=== PATIENT | female | born 1995 ===

== ENCOUNTER 2016-12-11 17:20 | Emergency (ER) | payer OTHER, BC ==
[2016-12-11 17:30] VITALS: BP 125/74; PULSE 92; RESP 18; TEMP 98.4; O2SAT 100
[2016-12-11] MEDS ORDERED: Naproxen 500 MG TAB PO ONE ×2 (17:50→18:08)
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
--- NOTE | 2016-12-17 07:17 | CARD ---
APPROVED REPORT EKG Measurement Heart [id number] <Conclusion> Sinus tachycardia Otherwise normal ECG
== END 2016-12-11 18:51 | disposition home or self-care (01) ==
LOC: H.ER 17:20
DX: S20.219A Contusion of unspecified front wall of thorax, initial encounter (principal); V03.10XA Pedestrian on foot injured in collision with car, pick-up truck or van in traffic accident, initial encounter; Y92.410 Unspecified street and highway as the place of occurrence of the external cause; E03.9 Hypothyroidism, unspecified

== ENCOUNTER 2018-02-21 14:04 | Emergency (ER) | payer BC, OTHER ==
[2018-02-21] MEDS ORDERED: ceFAZolin 1 GM in Sodium Chloride 0.9% 100 ML IVPB ONE (14:44)
--- NOTE | 2018-02-21 15:09 | ED PDOC ---
HPI: Skin/Bite Injury Time Seen by Provider: 02/21/18 14:40 Chief Complaint (Nursing): Bite Chief Complaint (Provider): insect bite History Per: Patient History/Exam Limitations: no limitations Current Symptoms Are (Timing): Still Present Additional Complaint(s): 23-year-old female, presents to the emergency department with complaints of of right leg pain. Patient states she was in [facility] and returned yesterday. Three days ago, she [place] and noted bite flower to her right leg. The next day patient woke up and developed pain to the area, which has been worsening gradually, prompting visit. Patient is currently complaining of chills and some fatigue. She denies any numbness/weakness, nausea/vomiting, fever, shortness of breath or any other associated symptoms. No other complaints at this time. Past Medical History Reviewed: Historical Data, Nursing Documentation, Vital Signs Vital Signs: Last Vital Signs Temp 99.1 F 02/21/18 14:16 Pulse 115 H 02/21/18 14:16 Resp 20 02/21/18 14:16 BP 111/66 02/21/18 14:16 Pulse Ox 100 02/21/18 15:51 - Medical History PMH: Hypothyroidism - Family History Family History: States: No Known Family Hx - Home Medications Home Medications: Ambulatory Orders Medication Instructions Recorded Naproxen [Naprosyn Tab] 500 mg PO Q12 #20 tab 12/11/16 Cephalexin [Keflex] 500 mg PO QID #28 capsule 02/21/18 Sulfamethoxazole/Trimethoprim 2 each PO BID #28 tablet 02/21/18 [Bactrim Ds Tablet] - Allergies Allergies/Adverse Reactions: Allergies Allergy/AdvReac Type Severity Reaction Status Date / Time No Known Allergies Allergy Verified 02/21/18 14:14 Review of Systems Constitutional: Negative for: Fever, Chills Cardiovascular: Negative for: Chest Pain Respiratory: Negative for: Shortness of Breath Gastrointestinal: Negative for: Nausea, Vomiting Musculoskeletal: Positive for: Leg Pain Skin: Negative for: Rash Neurological: Negative for: Weakness, Numbness Physical Exam - Reviewed Nursing Documentation Reviewed: Yes Vital Signs Reviewed: Yes - Physical Exam Appears: Positive for: Non-toxic, No Acute Distress Skin: Positive for: Normal Color, Warm, Dry Eye Exam: Positive for: Normal appearance Neck: Positive for: Painless ROM Extremity: Positive for: Other (Right lateral ankle with 2.5cm region of ecchymosis and erythema involving ankle and foot, approximatey 8cm in diameter. ). Negative for: Deformity Neurologic/Psych: Positive for: Alert, Oriented - Laboratory Results Result Diagrams: 02/21/18 15:45 02/21/18 15:30 - ECG O2 Sat by Pulse Oximetry: 100 - Progress ED Course And Treament: VANCOMYCIN 1 GM IV X 1 DOSE ANCEF 1 GM IV X 1 DOSE Medical Decision Making Medical Decision Making: Impression Bug bite Plan: * VBG * Bloodwork * Vancomycin, Ancef * Blood Culture * Reassess and Disposition Progress Scribe Attestation: Documented by Franky Vincent, acting as a scribe for MAC Beckham. Provider Scribe Attestation: All medical record entries made by the Scribe were at my direction and personally dictated by me. I have reviewed the chart and agree that the record accurately reflects my personal performance of the history, physical exam, medical decision making, and the department course for this patient. I have also personally directed, reviewed, and agree with the discharge instructions and disposition. Disposition - Clinical Impression Clinical Impression: Cellulitis, Insect bite - Patient ED Disposition Is Patient to be Admitted: No - Disposition Disposition: Routine/Home Disposition Time: 18:59 Condition: FAIR Additional Instructions: RETURN IN 2 DAYS FOR RE-EVALUATION Prescriptions: Cephalexin [Keflex] 500 mg PO QID #28 capsule Sulfamethoxazole/Trimethoprim [Bactrim Ds Tablet] 2 each PO BID #28 tablet Instructions: Insect Bites and Stings (DC), Cellulitis (Skin Infection), Adult (DC) Forms: [employer] (Moz[place]ican), [facility] ED School/Work Excuse
[2018-02-21] MEDS ORDERED: Vancomycin 1 g Inj ONE (15:52)
[2018-02-21 16:00] LABS: VENOUS BLOOD GAS BASE EXCESS 1.2 mmol/L (0.0-2.0); VENOUS BLOOD GAS PCO2 44 mmHg (40-60); VENOUS BLOOD GAS PO2 25 mm/Hg (30-55); VENOUS BLOOD PH 7.39 (7.32-7.43)
[2018-02-21 16:04] LABS: BASO % 0.4 % (0.0-2.0); EOS # 0.1 K/uL (0.0-0.7); EOS % 0.7 % (0.0-4.0); HEMOGLOBIN 13.5 g/dL (12.0-16.0); LYMPH % 13.4 % (20.0-40.0); MEAN CELL VOLUME 90.3 fl (81.0-99.0); MEAN CORPUSCULAR HEMOGLOBIN 29.9 pg (27.0-31.0); MEAN CORPUSCULAR HGB CONC 33.1 g/dL (33.0-37.0); MEAN PLATELET VOLUME 8.6 fl (7.2-11.7); MONO # 0.5 K/uL (0.0-0.8); MONO % 6.8 % (0.0-10.0); NEUT # 5.8 K/uL (1.8-7.0); NEUT % 78.7 % (50.0-75.0); RBC 4.5 Mil/uL (3.80-5.20); RED CELL DISTRIBUTION WIDTH 15.3 % (11.5-14.5); WHITE BLOOD COUNT 7.4 K/uL (4.8-10.8)
[2018-02-21 16:09] LABS: BLOOD UREA NITROGEN 11 mg/dl (7-17); GFR AFRICAN-AMERICAN > 60; GFR NON-AFRICAN AMERICAN > 60
[2018-02-21 19:38] VITALS: BP 134/84; PULSE 98; RESP 18; TEMP 99.8; O2SAT 99
== END 2018-02-21 19:40 | disposition home or self-care (01) ==
LOC: H.ER 14:04
DX: L03.115 Cellulitis of right lower limb (principal); S80.861A Insect bite (nonvenomous), right lower leg, initial encounter; E03.9 Hypothyroidism, unspecified; W57.XXXA Bitten or stung by nonvenomous insect and other nonvenomous arthropods, initial encounter
CPT/HCPCS: 80048; 82803; 85025; 87040; 96374; 96375; 99282; J0690

== ENCOUNTER 2018-02-23 17:37 | Emergency (ER) | payer BC ==
[2018-02-23 17:43] VITALS: BP 117/77; PULSE 82; RESP 16; TEMP 97.9; O2SAT 99
[2018-02-23] MEDS ORDERED: Tmp-Smz 800 mg-160 mg DS Tab PO STA (17:55)
--- NOTE | 2018-02-23 17:58 | ED PDOC ---
HPI: Skin/Bite Injury Time Seen by Provider: 02/23/18 17:48 Chief Complaint (Nursing): Abnormal Skin Integrity Chief Complaint (Provider): Abnormal Skin Integrity History Per: Patient History/Exam Limitations: no limitations Onset/Duration Of Symptoms: Days (x3) Current Symptoms Are (Timing): Better Additional Complaint(s): 23 year old female arrives to ED for a wound check of a right ankle bite initially evaluated on 02/21/18. Patient was prescribed Keflex/Bactrim and reports decrease in redness and swelling. She denies any fever, chills or pain. Patient is requesting to get prescribed medications in ED as she accidentally left it at work today and is due for next dose. Past Medical History Reviewed: Historical Data, Nursing Documentation, Vital Signs Vital Signs: Last Vital Signs Temp 97.9 F 02/23/18 17:42 Pulse 82 02/23/18 17:42 Resp 16 02/23/18 17:42 BP 117/77 02/23/18 17:42 Pulse Ox 99 02/23/18 18:12 - Medical History PMH: Hypothyroidism - Surgical History Surgical History: No Surg Hx - Family History Family History: States: Unknown Family Hx - Home Medications Home Medications: Ambulatory Orders Medication Instructions Recorded Naproxen [Naprosyn Tab] 500 mg PO Q12 #20 tab 12/11/16 Cephalexin [Keflex] 500 mg PO QID #28 capsule 02/21/18 Sulfamethoxazole/Trimethoprim 2 each PO BID #28 tablet 02/21/18 [Bactrim Ds Tablet] - Allergies Allergies/Adverse Reactions: Allergies Allergy/AdvReac Type Severity Reaction Status Date / Time No Known Allergies Allergy Verified 02/21/18 14:14 Review of Systems ROS Statement: Except As Marked, All Systems Reviewed And Found Negative Constitutional: Negative for: Fever, Chills Musculoskeletal: Negative for: Foot Pain Physical Exam - Reviewed Nursing Documentation Reviewed: Yes Vital Signs Reviewed: Yes - Physical Exam Appears: Positive for: Well, Non-toxic, No Acute Distress Pulses-Dorsalis Pedis (R): 2+ Extremity: Positive for: Other (small ecchymotic area to right lateral distal malleolus with faint erythema (-) streaking) - ECG O2 Sat by Pulse Oximetry: 99 (RA) Pulse Ox Interpretation: Normal Medical Decision Making Medical Decision Making: Initial Impression: Wound check Initial Plan: * Bactrim DS 2 tabs PO * Keflex 500mg PO --------- Time: 1758 --Upon provider evaluation, patient is medically stable and requires no further treatment in the ED at this time. Patient will be discharged home. Counseling was provided and all questions were answered regarding diagnosis. There is agreement to discharge plan. Return if symptoms persist or worsen. Clinical Impression: Wound check Scribe Attestation: Documented by Savannah Lopez, acting as a scribe for Louie Curiel PA-C. Provider Scribe Attestation: All medical record entries made by the Scribe were at my direction and personally dictated by me. I have reviewed the chart and agree that the record accurately reflects my personal performance of the history, physical exam, medical decision making, and the department course for this patient. I have also personally directed, reviewed, and agree with the discharge instructions and disposition. Disposition - Clinical Impression Clinical Impression: Visit for wound check - Patient ED Disposition Is Patient to be Admitted: No Counseled Patient/Family Regarding: Diagnosis, Need For Followup - Disposition Referrals: [facility] [Outside] Disposition: Routine/Home Disposition Time: 17:58 Condition: STABLE Additional Instructions: CONTINUE ANTIBIOTICS PRESCRIBED STEPHEN SALINAS, thank you for letting us take care of you today. Your provider was Rohini Erickson MD and you were treated for WOUND CHECK. The emergency medical care you received today was directed at your acute symptoms. If you were prescribed any medication, please fill it and take as directed. It may take several days for your symptoms to resolve. Return to the Emergency Department if your symptoms worsen, do not improve, or if you have any other problems. Please contact your doctor or call one of the physicians/clinics you have been referred to that are listed on the Patient Visit Information form that is included in your discharge packet. Bring any paperwork you were given at discharge with you along with any medications you are taking to your follow up visit. Our treatment cannot replace ongoing medical care by a primary care provider outside of the emergency department. Thank you for allowing the [facility] team to be part of your care today. If you had an X-Ray or CT scan: A Radiologist will review the ED reading if any change in treatment is needed we will contact you. If you had a blood, urine, or wound culture: It will take several days for the results, if any change in treatment is needed we will contact you. If you had an STI test: It will take 48 hours for the results. Please call after 1 week if you have not heard back. Instructions: Wound Care (DC) Forms: [employer] (Tanzanian)
[2018-02-23] MEDS ORDERED: Tmp-Smz 800 mg-160 mg DS Tab ONE (18:00)
== END 2018-02-23 18:03 | disposition home or self-care (01) ==
LOC: H.ER 17:37
DX: Z48.00 Encounter for change or removal of nonsurgical wound dressing (principal)

== ENCOUNTER 2018-03-02 07:11 | Emergency (ER) | payer BC ==
[2018-03-02 07:23] VITALS: BMI 26.5
[2018-03-02] MEDS ORDERED: DiphenhydrAMINE 50 mg/ml Inj IV STA (08:06)
[2018-03-02] MEDS ORDERED: Sodium Chloride 0.9% 1,000 ML IV STA (08:06)
[2018-03-02] MEDS ORDERED: DiphenhydrAMINE 50 mg/ml Inj ONE (08:24)
[2018-03-02 09:33] LABS: BASO % 0.2 % (0.0-2.0); EOS # 0.2 K/uL (0.0-0.7); EOS % 6.6 % (0.0-4.0); HEMOGLOBIN 13.2 g/dL (12.0-16.0); LYMPH # 0.7 K/uL (1.0-4.3); LYMPH % 18.4 % (20.0-40.0); MEAN CELL VOLUME 88.2 fl (81.0-99.0); MEAN CORPUSCULAR HEMOGLOBIN 29.9 pg (27.0-31.0); MEAN CORPUSCULAR HGB CONC 33.9 g/dL (33.0-37.0); MEAN PLATELET VOLUME 7.7 fl (7.2-11.7); MONO # 0.2 K/uL (0.0-0.8); MONO % 6.3 % (0.0-10.0); NEUT # 2.6 K/uL (1.8-7.0); NEUT % 68.5 % (50.0-75.0); NRBC % 0.5 % (0.0-0.0); RBC 4.43 Mil/uL (3.80-5.20); RED CELL DISTRIBUTION WIDTH 14.6 % (11.5-14.5); WHITE BLOOD COUNT 3.8 K/uL (4.8-10.8)
[2018-03-02 09:35] LABS: SQUAMOUS EPITHIAL < 1 /hpf (0-5); URINE BACTERIA RARE (<OCC); URINE BILIRUBIN NEGATIVE (NEGATIVE); URINE BLOOD NEGATIVE (NEGATIVE); URINE CLARITY CLEAR (Clear); URINE COLOR YELLOW (YELLOW); URINE GLUCOSE (UA) NEG (Normal); URINE LEUKOCYTE ESTERASE NEG Leu/uL (Negative); URINE PROTEIN NEGATIVE (NEGATIVE); URINE UROBILINOGEN 0.2-1.0 mg/dL (0.2-1.0)
[2018-03-02 09:37] LABS: INR 1.1; PROTHROMBIN TIME 11.8 Seconds (9.8-13.1)
[2018-03-02 09:39] LABS: PARTIAL THROMBOPLASTIN TIME 37.5 Seconds (25.6-37.1)
[2018-03-02 09:45] LABS: ALB/GLOB RATIO 1.3 (1.0-2.1); ALBUMIN 4.2 g/dL (3.5-5.0); ALT/SGPT 28 U/L (9-52); AST/SGOT 33 U/L (14-36); BLOOD UREA NITROGEN 9 mg/dl (7-17); CALCIUM 8.8 mg/dL (8.4-10.2); GFR AFRICAN-AMERICAN > 60; GFR NON-AFRICAN AMERICAN > 60
[2018-03-02 13:44] VITALS: BP 108/59; RESP 18; TEMP 98.4; O2SAT 98
--- NOTE | 2018-03-02 13:56 | ED PDOC ---
HPI: General Adult Time Seen by Provider: 03/02/18 07:34 Chief Complaint (Nursing): Abnormal Skin Integrity Chief Complaint (Provider): RASH History Per: Patient, Family History/Exam Limitations: no limitations Current Symptoms Are (Timing): Still Present Severity: Severe Location: diffuse Quality: rash Additional Complaint(s): 23yo female presents with new onset rash started last night worse this morning. Rash diffuse from face to toes, it does involve palms and soles. No SOB or throat swelling. +facial swelling. States ?low grade fevers but no weakness, cough, oral pain/lesions, conjunctivitis or muscle/joint pains. Taking bactrim and keflex almost completed course after possible insect bite with cellulitis LLE obtained in [facility]. Seen ED 02/21 with a followup visit thereafter. States ankle pain and swelling has resolved, ambulating normally. Past Medical History Vital Signs: Last Vital Signs Temp 98.4 F 03/02/18 14:13 Pulse 104 H 03/02/18 14:13 Resp 18 03/02/18 14:13 BP 108/59 L 03/02/18 14:13 Pulse Ox 98 03/02/18 14:13 - Medical History PMH: Hypothyroidism - Family History Family History: States: Unknown Family Hx - Home Medications Home Medications: Ambulatory Orders Medication Instructions Recorded Naproxen [Naprosyn Tab] 500 mg PO Q12 #20 tab 12/11/16 Cephalexin [Keflex] 500 mg PO QID #28 capsule 02/21/18 Sulfamethoxazole/Trimethoprim 2 each PO BID #28 tablet 02/21/18 [Bactrim Ds Tablet] DiphenhydrAMINE [Benadryl] 25 mg PO Q4 PRN #12 cap 03/02/18 Prednisone 50 mg PO DAILY #4 tab 03/02/18 - Allergies Allergies/Adverse Reactions: Allergies Allergy/AdvReac Type Severity Reaction Status Date / Time No Known Allergies Allergy Verified 02/21/18 14:14 Physical Exam - Reviewed Nursing Documentation Reviewed: Yes Vital Signs Reviewed: Yes - Physical Exam Appears: Positive for: Non-toxic Head Exam: Positive for: ATRAUMATIC, NORMAL INSPECTION, NORMOCEPHALIC Skin: Positive for: Normal Color, Warm, Rash (diffuse erythematous macular papular eruption including face/ palms/soles) Eye Exam: Positive for: EOMI, Normal appearance, PERRL ENT: Positive for: Normal ENT Inspection, Pharynx Is (neg koplik spots), Pharyngeal Erythema. Negative for: Tonsillar Swelling Neck: Positive for: Normal, Painless ROM Cardiovascular/Chest: Positive for: Regular Rate, Rhythm Respiratory: Positive for: CNT, Normal Breath Sounds Pulses-Radial (L): 3+/4+ Pulses-Radial (R): 3+/4+ Gastrointestinal/Abdominal: Positive for: Soft. Negative for: Tenderness, Guarding Back: Positive for: Normal Inspection Extremity: Positive for: Normal ROM Neurologic/Psych: Positive for: Alert, Oriented, Gait (normal). Negative for: Motor/Sensory Deficits - Laboratory Results Result Diagrams: 03/02/18 09:24 03/02/18 09:24 - ECG O2 Sat by Pulse Oximetry: 98 Medical Decision Making Medical Decision Making: workup initiated for impressive rash diffuse, nontender, +palms and soles, afebrile otherwise well appearing labs and repeat blood cultures obtained +mild leukopenia Mild elev ESR Plt normal renal and liver function unremarkable UA unremarkable solumedrol and benadryl given w re-evaluations for improvement. No respiratory symptoms. Given foreign travel, now rash and prior ? cellulitis [facility] intens[facility], Dr Lee saw patient and recommended multiple tests including zika (PCR ok per ID), RSMF, RPR, measles, dengue, etc. Explained findings and need for followup ID in office next week. Explained avoid public spaces. Dr Lee does not believe measles, rather drug eruption but continue w diagnostics Reeval prior to DC revealed improved of facial symptoms, no SOB or oropharyngeal symptoms. [place] well other than rash to body persisting. Rx benadryl and prednisone. Stop Abx. Followup ID and indications for return ER discussed. Disposition - Clinical Impression Clinical Impression: Rash - Patient ED Disposition Is Patient to be Admitted: No Counseled Patient/Family Regarding: Studies Performed, Diagnosis, Need For Followup - Disposition Referrals: Peña Lee MD [Staff Provider] - Disposition: Routine/Home Disposition Time: 14:01 Condition: STABLE Additional Instructions: Return to ER for any new or worsening symptoms. Take medication as directed. STOP ANTIBIOTICS. Followup with infectious disease specialist in 3-4 days for test results. Avoid close contact with others until results return, stay out of public spaces until tests return. Prescriptions: DiphenhydrAMINE [Benadryl] 25 mg PO Q4 PRN #12 cap PRN Reason: Rash Prednisone 50 mg PO DAILY #4 tab Instructions: Skin Rash (DC) Forms: [employer] ([place]), [facility] ED School/Work Excuse
--- NOTE | 2018-03-02 14:08 | CP.PCM.CON ---
History of Present Illness - History of Present Illness History of Present Illness: Infectious Disease Consultation Note- Asked to see this david at the request of for generalized rash. 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 pt. states she recently traveled to [facility] with her family and had multiple mosquito bites and one of the mosquito bites on the right lower leg developed into larger red and edematous area resembling cellulitis for which she came to ED and was given 2 IM abx and was d/c on keflex and bactrim by the ER doc and markusmary sattes she took the meds for 5 days and yesterday she noticed small red bumps on her lower leg first and today it had progressed to her entire body including her back and chest and abdomen and also developed rash on hger face and palms and soles of her feet and lip swelling adn swelling of her eyelid adn hence was brought to ED by her father. Pt. sattes she also had low grade fever at home but not in ED. denies any cough or sob, denies any trouble swallowing, denies any BRITO, denies any chest pain, jewel any abd. pain, denies nay nausea or vomiting, denies any dysurea or diarrhea. Pt. states she does not know of having ane allergies to meds and has taken amox in past w/o any issues. she was given benadryl in ED and she states her facial sna lip swelling improved a lot after that. case was d/w and I asked them to send RMSF and dengues and zika serology secoondary to patient's tarvel history, however the rash look like drug allergy rash either to bactrim(sulfa) or keflex. Review of Systems - Review of Systems Review of Systems: ROS- + fever at home but not stanislaw + all over generalized rash, not itchy, no sob, no cough, no BRITO, no chest pain, no abd. pain, no nausea or vomitng, no diarrhea, no dysurea. Past Patient History - Past Social History Smoking Status: Never Smoked Alcohol: None Drugs: Denies Home Situation {Lives}: With Family - CARDIAC Hx Cardiac Disorders: No - PULMONARY Hx Respiratory Disorders: No - NEUROLOGICAL Hx Neurological Disorder: No - RENAL Hx Chronic Kidney Disease: No - ENDOCRINE/METABOLIC Hx Hypothyroidism: Yes - HEMATOLOGICAL/ONCOLOGICAL Hx Blood Disorders: No - PSYCHIATRIC Hx Substance Use: No - SURGICAL HISTORY Hx Thyroidectomy: Yes - ANESTHESIA Hx Anesthesia: Yes Hx Anesthesia Reactions: No Meds Home Medications: Home Medication List Medication Instructions Recorded Confirmed Type DiphenhydrAMINE [Benadryl] 25 mg PO Q4 PRN #12 cap 03/02/18 Rx Prednisone 50 mg PO DAILY #4 tab 03/02/18 Rx Allergies/Adverse Reactions: Allergies Allergy/AdvReac Type Severity Reaction Status Date / Time No Known Allergies Allergy Verified 02/21/18 14:14 Physical Exam - Constitutional Appears: No Acute Distress - Head Exam Head Exam: ATRAUMATIC - Eye Exam Eye Exam: EOMI, PERRL - ENT Exam ENT Exam: Normal Oropharynx Additional comments: slight swelling o the left upepr lip region and left eyelid region but as per pt much improved, no erythema on face - Neck Exam Neck exam: Positive for: Full Rom - Respiratory Exam Respiratory Exam: Clear to Auscultation Bilateral, NORMAL BREATHING PATTERN - Cardiovascular Exam Cardiovascular Exam: RRR, +S1, +S2 - GI/Abdominal Exam GI & Abdominal Exam: Normal Bowel Sounds, Soft Additional comments: NT, ND - Extremities Exam Additional comments: no edema in B/L LE Right LE cellulitis that pt. ahd originally as per her and med records has healed. - Neurological Exam Neurological exam: Alert, Oriented x3 - Skin Additional comments: extensive maculopapular rash allover the body mostly on her chest /abdomen/ entire menendez / b/l ggroin and upper thigh region and b/l arms and palms margot on b/l soles no vesicles no discharge Results - Vital Signs Recent Vital Signs: Last Vital Signs Temp 98.4 F 03/02/18 13:43 Pulse 106 H 03/02/18 13:43 Resp 18 03/02/18 13:43 BP 108/59 L 03/02/18 13:43 Pulse Ox 98 03/02/18 13:56 - Labs Result Diagrams: 03/02/18 09:24 03/02/18 09:24 Labs: Laboratory Results - last 24 hr 08/09/18 08/09/18 08/09/18 09:24 09:24 09:24 WBC 3.8 L RBC 4.43 Hgb 13.2 Hct 39.1 MCV 88.2 D MCH 29.9 MCHC 33.9 RDW 14.6 H Plt Count 262 MPV 7.7 Neut % (Auto) 68.5 Lymph % (Auto) 18.4 L Dougherty % (Auto) 6.3 Eos % (Auto) 6.6 H Baso % (Auto) 0.2 Neut # (Auto) 2.6 Lymph # (Auto) 0.7 L Dougherty # (Auto) 0.2 Eos # (Auto) 0.2 Baso # (Auto) 0.0 ESR 29 H PT 11.8 INR 1.1 APTT 37.5 H Sodium 136 Potassium 4.0 Chloride 102 Carbon Dioxide 22 Anion Gap 16 BUN 9 Creatinine 0.9 Est GFR ( Amer) > 60 Est GFR (Non-Af Amer) > 60 Random Glucose 102 Calcium 8.8 Total Bilirubin 0.3 AST 33 ALT 28 Alkaline Phosphatase 71 Total Protein 7.5 Albumin 4.2 Globulin 3.3 Albumin/Globulin Ratio 1.3 Urine Color Urine Clarity Urine pH Ur Specific [place] Urine Protein Urine Glucose (UA) Urine Ketones Urine Blood Urine Nitrate Urine Bilirubin Urine Urobilinogen Ur Leukocyte Esterase Urine RBC (Auto) Urine Microscopic WBC Ur Squamous Epith Cells Urine Bacteria 03/02/18 09:24 WBC RBC Hgb Hct MCV MCH MCHC RDW Plt Count MPV Neut % (Auto) Lymph % (Auto) Dougherty % (Auto) Eos % (Auto) Baso % (Auto) Neut # (Auto) Lymph # (Auto) Dougherty # (Auto) Eos # (Auto) Baso # (Auto) ESR PT INR APTT Sodium Potassium Chloride Carbon Dioxide Anion Gap BUN Creatinine Est GFR ( Amer) Est GFR (Non-Af Amer) Random Glucose Calcium Total Bilirubin AST ALT Alkaline Phosphatase Total Protein Albumin Globulin Albumin/Globulin Ratio Urine Color Yellow Urine Clarity Clear Urine pH 7.0 Ur Specific [place] 1.006 Urine Protein Negative Urine Glucose (UA) Neg Urine Ketones Negative Urine Blood Negative Urine Nitrate Negative Urine Bilirubin Negative Urine Urobilinogen 0.2-1.0 Ur Leukocyte Esterase Neg Urine RBC (Auto) < 1 Urine Microscopic WBC < 1 Ur Squamous Epith Cells < 1 Urine Bacteria Rare Laboratory Results - last 72 hr 03/02/18 03/02/18 03/02/18 09:24 09:24 09:24 WBC 3.8 L RBC 4.43 Hgb 13.2 Hct 39.1 MCV 88.2 D MCH 29.9 MCHC 33.9 RDW 14.6 H Plt Count 262 MPV 7.7 Neut % (Auto) 68.5 Lymph % (Auto) 18.4 L Dougherty % (Auto) 6.3 Eos % (Auto) 6.6 H Baso % (Auto) 0.2 Neut # (Auto) 2.6 Lymph # (Auto) 0.7 L Dougherty # (Auto) 0.2 Eos # (Auto) 0.2 Baso # (Auto) 0.0 ESR 29 H PT 11.8 INR 1.1 APTT 37.5 H Sodium 136 Potassium 4.0 Chloride 102 Carbon Dioxide 22 Anion Gap 16 BUN 9 Creatinine 0.9 Est GFR ( Amer) > 60 Est GFR (Non-Af Amer) > 60 Random Glucose 102 Calcium 8.8 Total Bilirubin 0.3 AST 33 ALT 28 Alkaline Phosphatase 71 Total Protein 7.5 Albumin 4.2 Globulin 3.3 Albumin/Globulin Ratio 1.3 Urine Color Urine Clarity Urine pH Ur Specific [place] Urine Protein Urine Glucose (UA) Urine Ketones Urine Blood Urine Nitrate Urine Bilirubin Urine Urobilinogen Ur Leukocyte Esterase Urine RBC (Auto) Urine Microscopic WBC Ur Squamous Epith Cells Urine Bacteria 03/02/18 09:24 WBC RBC Hgb Hct MCV MCH MCHC RDW Plt Count MPV Neut % (Auto) Lymph % (Auto) Dougherty % (Auto) Eos % (Auto) Baso % (Auto) Neut # (Auto) Lymph # (Auto) Dougherty # (Auto) Eos # (Auto) Baso # (Auto) ESR PT INR APTT Sodium Potassium Chloride Carbon Dioxide Anion Gap BUN Creatinine Est GFR ( Amer) Est GFR (Non-Af Amer) Random Glucose Calcium Total Bilirubin AST ALT Alkaline Phosphatase Total Protein Albumin Globulin Albumin/Globulin Ratio Urine Color Yellow Urine Clarity Clear Urine pH 7.0 Ur Specific [place] 1.006 Urine Protein Negative Urine Glucose (UA) Neg Urine Ketones Negative Urine Blood Negative Urine Nitrate Negative Urine Bilirubin Negative Urine Urobilinogen 0.2-1.0 Ur Leukocyte Esterase Neg Urine RBC (Auto) < 1 Urine Microscopic WBC < 1 Ur Squamous Epith Cells < 1 Urine Bacteria Rare Assessment & Plan (1) Rash Status: Acute - Assessment and Plan (Free Text) Assessment: A/P- 23 year old female presenting with generalized maculopapular rash on the entire body most likely secondary to allergic reaction to either bactrim or keflex. pt. can be d/c Home since her vitals are all stable and she is comfortable nad her facial swelling has resolved with bendaryl. advise to d/c all antibiotics. cmp-normal cbc- mild leukopenia with mild eosinophilia advised pt to f/u with me in office in few days so that I can make sure her rash has resolved and hopefully the tests that were ordered namely dengues, RMSF , MMR, RPR would be resulted by then. advised for her to be d/c home on medrol dose pack . advised pt. if she develops any fever or any further facial swelling to return to ED. Patient verbalizes full understanding of all above and agrees with above plan of care. case d/w . Thank you for this very interesting consult.
[2018-03-02 14:14] VITALS: PULSE 104
== END 2018-03-02 14:16 | disposition home or self-care (01) ==
LOC: H.ER 07:11
DX: R21 Rash and other nonspecific skin eruption (principal); L03.116 Cellulitis of left lower limb; D72.819 Decreased white blood cell count, unspecified; R22.0 Localized swelling, mass and lump, head
CPT/HCPCS: 80053; 81003; 81025; 85025; 85610; 85651; 85730; 86592; 86757; 86765; 86790; 87040; 96361; 96374; 96375; 99283; J1200; J2930; J7030